=== PATIENT | male | born 1940 | race African-American/Black ===

== ENCOUNTER 2016-07-23 14:45 | Observation (INO) | payer BC ==
--- NOTE | ~2016-07-23 | EGD ---
EGD REPORT [facility] [address] [place]. [address] NAME: EHSAN RITTER : 44 STATUS : ADM Joselyn PAT#: [id number] AGE: 75 ADM/REG DATE : 07/23/16 MR#: [id number] REPORT SERV DATE: 07/24/16 DICTATED BY: LOI LOPEZ DATE: 07/24/16 REPORT STATUS : Draft [facility]ANS[facility]: [facility] DATE: 07/24/16 Endoscopy Center Patient Name: Ehsan Ritter Date of : 1940 Attending MD: LOI LOPEZ MD Procedure Date No Time: 07/24/2016 Procedure: Colonoscopy Indications: Rectal bleeding Medicines: Monitored Anesthesia Care Complications: No immediate complications. Estimated blood loss: Minimal. Procedure: Pre-Anesthesia Assessment: - ASA Grade Assessment: III - A patient with severe systemic disease. After I obtained informed consent, the scope was passed under direct vision. Throughout the procedure, the patient's blood pressure, pulse, and oxygen saturations were monitored continuously. The CF [id number] was introduced through the anus and advanced to the cecum, identified by appendiceal orifice and ileocecal valve. The colonoscopy was performed without difficulty. The patient tolerated the procedure well. The quality of the bowel preparation was good. Findings: The perianal and digital rectal examinations were normal. Pertinent negatives include normal sphincter tone and no palpable rectal lesions. A sessile polyp was found in the cecum. The polyp was 4 mm in size. The polyp was removed with a cold biopsy forceps. Resection and retrieval were complete. Estimated blood loss was minimal. Multiple medium-mouthed diverticula were found in the sigmoid colon. Multiple petechiae were found in the sigmoid colon. Biopsies were taken with a cold forceps for histology. Estimated blood loss was minimal. The exam was otherwise without abnormality on direct and retroflexion views. There is no endoscopic evidence of bleeding, mass or ulcerations in the entire colon. Impression: - One 4 mm polyp in the cecum. Resected and retrieved. - Diverticulosis in the sigmoid colon. - Petechia(e) in the sigmoid colon. Biopsied. - The examination was otherwise normal on direct and retroflexion views. Recommendation: - Return patient to [facility] for [facility] care. EGD REPORT [address] [place]. [address] NAME: EHSAN RITTER : [birth year] STATUS : ADM Joselyn PAT#: [id number] AGE: 75 ADM/REG DATE : 07/23/16 MR#: [id number] REPORT SERV DATE: 07/24/16 DICTATED BY: LOI LOPEZ DATE: 07/24/16 REPORT STATUS : Draft TRANSCRIBED BY: [employer] DATE: 07/24/16 - Soft diet today. Procedure Code(s): --- Professional --- 63209, Colonoscopy, flexible, proximal to splenic flexure; with biopsy, single or multiple Diagnosis Code(s): --- Professional --- D12.0, Benign neoplasm of cecum K57.30, Diverticulosis of large intestine without perforation or abscess without bleeding K63.89, Other specified diseases of intestine K62.5, Hemorrhage of anus and rectum CPT copyright 2013 [employer]. All rights reserved. The codes documented in this report are preliminary and upon lead rider review may be revised to meet current compliance requirements. Loi Lopez MD LOI LOPEZ MD 07/24/2016 7:59 AM This report has been signed electronically. Number of Addenda: 0 Note Initiated On: 07/24/2016 7:04 AM Scope Withdrawal Time 0 hours 13 minutes 39 seconds [id number] [id number]
--- NOTE | ~2016-07-23 | CN ---
Consultation Report [facility] [address] [place]. [address] NAME: EHSAN RITTER : 44 STATUS : ADM Joselyn PAT#: [id number] AGE: 75 ADM/REG DATE : 07/23/16 MR#: [id number] REPORT SERV DATE: 07/23/16 DICTATED BY: MARIELLE ELLIS DATE: 07/23/16 REPORT STATUS : Draft TRANSCRIBED BY: MODL DATE: 07/23/16 GI CONSULTATION DATE OF CONSULTATION: 07/23/2016 A 75-year-old male patient. REASON FOR CONSULTATION: Evaluation and management of painless lower GI bleeding. HISTORY OF PRESENT ILLNESS: Mr. Ehsan Ritter is a very pleasant 75-year-old male patient, who is known to Dr. Raymundo Jim in the outpatient setting, who presented to [facility] with a chief complaint of lower GI bleeding. He states symptom onset was four days ago with bright red blood per rectum. He states that he has passed blood daily for the last four days. Today however he has had 3 to 4 bloody bowel movements. He describes no abdominal pain. He states it is painless. He has fecal urgency, secondary to the increase of passing of blood. He came in for further evaluation. He has a history of last colonoscopy with Dr. Jim in 2010 that showed sigmoid colon, descending colon diverticulosis as well as nonbleeding internal hemorrhoids. He was due to have a colonoscopy with Dr. Jim in July, however, secondary to the bleeding, he has come in. I have discussed with the patient as well as his family who is present at the bedside that we will plan on prepping him today for colonoscopy to be done tomorrow by Dr. Bravo. I did discuss risks, benefits, alternatives, and complications with him to include, but not limited to risk of bleeding, perforation, infection, reaction to medication, as well as cardiac and pulmonary side effects. He is agreeable to proceed. PAST MEDICAL HISTORY: He has a past medical history positive for diverticulosis, internal hemorrhoids, and prostate cancer. He is status post robot-assisted laparoscopic radical prostatectomy with bilateral laparoscopic pelvic lymph node dissection. He has had urethral sling. He has had history of tension pneumothorax on the right side, status post chest tube with resolution. Hypertension. SOCIAL HISTORY: He is . Lives independently. Denies alcohol, tobacco, or illicits. FAMILY HISTORY: Noncontributory from a GI standpoint. ALLERGIES: NO KNOWN ALLERGIES. HOME MEDICATIONS: ProAir HFA; Norvasc; Artificial Tears; Lipitor; vitamin B; Cartia; Colace; Cozaar; metoprolol; Aldactone; Desyrel; and [id number] nasal spray. REVIEW OF SYSTEMS: A 10-point review of systems has been obtained with pertinent positives being addressed in the history of present illness. PHYSICAL EXAMINATION: Consultation Report [place] [id number] [facility] [place]. [address] NAME: EHSAN RITTER : 44 STATUS : ADM Joselyn PAT#: [id number] AGE: 75 ADM/REG DATE : 07/23/16 MR#: [id number] REPORT SERV DATE: 07/23/16 DICTATED BY: MARIELLE ELLIS DATE: 07/23/16 REPORT STATUS : Draft TRANSCRIBED BY: MARYCARMEN DATE: 07/23/16 VITAL SIGNS: Temperature is 98.7, pulse 80, respirations 19, and blood pressure 215/102. NEUROLOGIC: Reveals an alert male, resting in bed with no focal deficits. GENERAL: Cooperative, in no apparent distress. Awake, alert, and oriented x3. HEAD, EARS, EYES, NOSE, AND THROAT: Anicteric. Pupils equal, round, and reactive to light and accommodation. Normocephalic and atraumatic. NECK: No JVD. No palpable nodes. Supple. LUNGS: Clear anteriorly with normal respiratory effort exhibited. Equal expansion. CARDIOVASCULAR SYSTEM: Regular rate and rhythm. Mild murmur heard. ABDOMEN: Soft, nontender, obese with active bowel sounds in all four quadrants. No rebound, guarding, or organomegaly appreciated on exam. EXTREMITIES: 1+ pitting edema. PERTINENT LABORATORY DATA: Sodium 140, potassium 4.1, BUN is 14, creatinine is 1.16. White count 8.4, hemoglobin 15.3, hematocrit 43.8, and platelet count 191. ASSESSMENT AND PLAN: 1. Painless lower GI bleeding, this is likely diverticular in nature. 2. History of diverticulosis 2011 of the sigmoid and descending colon. 3. History of prostate cancer, status post prostatectomy. PLAN: 1. Clear diet. 2. N.p.o. after midnight. 3. GoLYTELY bowel prep. 4. Colonoscopy on the . 5. Q.6 hours H and H. transfuse if needed. We will follow. Other recommendations to follow endoscopy. DEBBIE/MARYCARMEN [facility] BAKARI Mullins / [phone]
--- NOTE | ~2016-07-23 | HP ---
History And Physical [place] [id number] [facility] [place]. [address] NAME: LEWIS VARELA : 44 STATUS : ADM Joselyn PAT#: [id number] AGE: 75 ADM/REG DATE : 07/23/16 MR#: [id number] REPORT SERV DATE: 07/23/16 DICTATED BY: JANAK CURRY DATE: 07/23/16 REPORT STATUS : Draft TRANSCRIBED BY: MARYCARMEN DATE: 07/23/16 DATE OF ADMISSION: 07/23/2016 Mr. Varela is a 75-year-old male patient who came in this morning to the ER because he noticed bright red blood per rectum. The patient states that for the last 3 or 4 days, he has been having some quantity of bright red blood in his stool. He notices it after he has a bowel movement which is soft and then notices blood around it but this morning for the last two or three times, he noticed a lot of blood especially this morning though there was bright red blood that filled the entire toilet bowl and this scared him and he decided to come in. He states that this has never happened to him before and he has never had bleeding per rectum. Other than this complaint, there are no other complaints. The patient states that there is some abdominal cramping before he has a bowel movement and he has had increased frequency too. He has had at least 3 bowel movements in the last 24 hours and every time, his lower abdomen cramps. Other than this, no other complaints. REVIEW OF SYSTEMS: Negative for headaches, blurry vision, trouble swallowing, chest pain, shortness of breath, fever, nausea, and vomiting. Negative for any significant abdominal pain. Negative for any swelling in feet. Negative for any hematemesis. All other review of systems were reviewed and negative. PAST MEDICAL HISTORY: 1. Significant for diverticulosis upon colonoscopy about five years ago. 2. Hypertension. 3. Coronary artery disease, status post cardiac stent. 4. Prostate cancer status post prostatectomy. 5. Chronic urinary incontinence despite sling surgery. 6. Recent tension pneumothorax that happened spontaneously and idiopathically within the last few months. This has resolved after chest tube placement and is stable currently. 7. Specifically the patient is not on any blood thinners. FAMILY HISTORY: Noncontributory except for heart disease in dad. SOCIAL HISTORY: The patient does not smoke or drink or do any illicit drugs. He is and his is currently in the room. His medications at home and allergies include the following: The patient has no known drug allergies and his home medications are Norvasc 5 mg once a day; Lipitor 10 mg p.o. once a day; Cozaar 50 mg p.o. b.i.d.; metoprolol succinate or Toprol-XL 25 mg once a day; Aldactone 50 mg once a day; Desyrel or trazodone 100 mg at bedtime; diltiazem ER 240 mg p.o. at bedtime; OTC nasal spray, Colace 200 mg p.o. daily as needed for constipation; and ProAir HFA two puffs inhalation p.r.n. for shortness of breath. PHYSICAL EXAMINATION: GENERAL: On examination, the patient is alert, oriented, able to give his history himself. Skin and mucous membranes appear well hydrated. History And Physical [address] [address] NAME: LEWIS VARELA : 42 STATUS : ADM Joselyn PAT#: [id number] AGE: 75 ADM/REG DATE : 07/23/16 MR#: [id number] REPORT SERV DATE: 07/23/16 DICTATED BY: JANAK CURRY DATE: 07/23/16 REPORT STATUS : Draft TRANSCRIBED BY: MARYCARMEN DATE: 07/23/16 VITAL SIGNS: Vital signs are very stable and currently his blood pressure is 186/99, pulse is 75 per minute, the patient is afebrile, and O2 saturation 98% on 2 L. HEENT: Unremarkable. There is no facial droop or facial asymmetry. NECK: There is no JVD, thyromegaly, or lymphadenopathy. CARDIOVASCULAR SYSTEM: S1, S2 appreciated. Sinus rhythm. No murmurs, rubs, or gallops noted. RESPIRATORY SYSTEM: Clear lungs. Good air entry. No rales or rhonchi noted. The patient still complains of some discomfort on the right side of the chest where the chest tube was put in a few months ago but other than a small well-healed scar, I see no other abnormality there. ABDOMEN: Obese, soft, nontender, nondistended. No organomegaly noted. No guarding or rigidity noted. Bowel sounds are appreciated. EXTREMITIES: There is no pedal edema. Pedal pulses are well felt.NEUROLOGICAL: No focal deficits. PSYCHIATRIC: Normal. MUSCULOSKELETAL: No acute abnormalities. RECTAL: Exam was performed by the ER nurse practitioner, who states that stool guaiac was positive. There is no visible bright red blood but she states that there is definitely guaiac-positive stool in the rectal vault. LABORATORY DATA: Labs that I have on this patient include the following: CBC shows a WBC count of 8.4, hemoglobin 15.3, hematocrit 43.8, and platelet count of 191. INR is 1. Comprehensive metabolic profile shows completely normal electrolytes, LFTs, and kidney function tests. ASSESSMENT: Assessment in this gentleman is 1. Lower GI bleed, could be secondary to diverticulosis/hemorrhoids-for this, we will go ahead and consult his GI. GI has already seen the patient and decided that he will get a colonoscopy tomorrow morning. Hence, he will be n.p.o. after midnight. We will also start him on IV fluids, IV normal saline at 100 mL an hour for the next 24 hours. We will type, cross, and hold 2 units of PRBCs even though we are not going to transfuse him as his H and H are stable and he is hemodynamically stable, and there is no active bleeding going on now. 2. We will check his H and H every eight hours. 3. Other chronic problems that are stable in him include hypertension, coronary artery disease, status post coronary stenting a few years ago, prostate cancer status post prostatectomy, chronic urinary incontinence, and a recent history of spontaneous tension pneumothorax in the right lung which are all stable at this time. We will admit the patient for observation and follow the patient as above. RRA/MODL Janak Curry M.D. History And Physical [address] [place]. [address] NAME: LEWIS VARELA : 44 STATUS : ADM Joselyn PAT#: [id number] AGE: 75 ADM/REG DATE : 07/23/16 MR#: [id number] REPORT SERV DATE: 07/23/16 DICTATED BY: JANAK CURRY DATE: 07/23/16 REPORT STATUS : Draft TRANSCRIBED BY: MARYCARMEN DATE: 07/23/16 / [id number] CC: Janak Curry M.D.
--- NOTE | ~2016-07-23 | DS ---
Discharge Summary [facility] [address] [place]. [address] NAME: LEWIS RITTER : 44 STATUS : DIS Joselyn PAT#: [id number] AGE: 75 ADM/REG DATE : 07/23/16 MR#: [id number] REPORT SERV DATE: 07/25/16 DICTATED BY: JANAK CURRY DATE: 07/24/16 REPORT STATUS : Draft TRANSCRIBED BY: MODSanaz DATE: 07/24/16 ADMISSION DATE: 07/23/2016 DISCHARGE DATE: 07/24/2016 Discharged from Observation. CONDITION ON DISCHARGE: Stable. ADVICE ON DISCHARGE: To follow up with GI specialist as scheduled by GI. DIAGNOSES ON DISCHARGE: 1. Lower gastrointestinal bleed/rectal bleed most likely secondary to diverticulosis/petechial inflammation of the sigmoid colon which was found on colonoscopy this time, but no active bleeding was found. His hemoglobin and hematocrit are stable essentially. 2. All his other diagnoses that are chronic and stable at this time also include coronary artery disease, which is stable hypertension - stable, history of prostate cancer status prostatectomy - stable, chronic urinary incontinence despite surgery - stable, recent tension pneumothorax that has completely resolved and is stable right now. BRIEF HOSPITAL COURSE: The patient is a very pleasant 75-year-old male, who was admitted with the symptoms of rectal bleed. He was admitted for observation as he was hemodynamically stable, and his hemoglobin and hematocrit were normal. GI was promptly consulted, and they did do a colonoscopy today, 07/24/2016, and this showed diverticular disease in the colon, and also petechiae in the sigmoid colon which has been biopsied, but no active bleeding was found. No hemorrhoids were found either. The patient otherwise is stable for discharge, and would like to go home, and hence we are sending him home, and I do have the following most recent lab results on this patient. His CBC shows WBC 7.4, hemoglobin 15.1, hematocrit 43.9, essentially normal. INR is 1.1. Platelets are normal. Electrolyte profile is normal. BUN and creatinine are normal. Hence, he will be going home on the following new medications; for his diverticular disease, we will go ahead and put him on MiraLAX one packet once a day so that he uses this on a regular basis, so he is not constipated. Other than that, it is important that we resume his other home medications which include the following: Amlodipine 5 mg once a day, Lipitor 10 mg once a day, Cozaar 50 mg p.o. b.i.d., Toprol-XL 25 mg once a day, Aldactone 50 mg once a day, trazodone 100 mg p.o. at bedtime, diltiazem ER 240 mg p.o. at bedtime, B group of vitamins once a day, Colace 200 mg p.o. daily as needed for constipation along with MiraLAX, ProAir HFA 2 puff inhalation p.r.n. only for trouble breathing, and Artificial Tears. Hence, the patient is being discharged home in stable condition, and I have spent about 35 minutes in coordinating discharge care of this patient including [id number] encounter and summarizing this discharge. The patient was only admitted for observation and discharge will be billed as observation only. DICTATED BY: Janak Curry M.D. Discharge Summary [address] [address] NAME: LEWIS RITTER : 44 STATUS : DIS Joselyn PAT#: [id number] AGE: 75 ADM/REG DATE : 07/23/16 MR#: [id number] REPORT SERV DATE: 07/25/16 DICTATED BY: JANAK CURRY DATE: 07/24/16 REPORT STATUS : Draft TRANSCRIBED BY: MARYCARMEN DATE: 07/24/16 RICKIE/MARYCARMEN Janak Curry M.D. / [id number] CC: Janak Curry M.D.
[2016-07-23 13:10] LABS: BASOPHILS 0.1 %; BASOPHILS ABSOLUTE 0.01 10/3/uL (0.0-0.16); EOSINOPHILS 0.7 %; EOSINOPHILS ABSOLUTE 0.06 10/3/uL (0.0-0.53); HEMATOCRIT 43.8 % (40.0-51.0); HEMOGLOBIN 15.3 g/dL (13.6-17.8); IMMATURE GRANULOCYTES 0.1 %; IMMATURE GRANULOCYTES ABSOLUTE 0.01 10/3/uL (0.0-0.11); LYMPHOCYTES 17.7 %; LYMPHOCYTES ABSOLUTE 1.49 10/3/uL (0.67-4.30); MEAN CORPUS HGB CONC 34.9 g/dL (32.0-36.0); MEAN CORPUSCULAR HEMOGLOB 32.6 pg (26.0-34.0); MEAN CORPUSCULAR VOLUME 93.4 fL (80-100); MEAN PLATELET VOLUME 9.4 fL (9.2-13.0); MONOCYTES 7.8 %; MONOCYTES ABSOLUTE 0.66 10/3/uL (0.21-1.20); NEUTROPHILS 73.6 %; NEUTROPHILS ABSOLUTE 6.21 10/3/uL (2.02-8.40); PLATELET COUNT 191 10/3/uL (150-400); RBC DISTRIBUTION WIDTH 13.8 % (12.0-16.0); RED CELL COUNT 4.69 10/6/uL (4.7-6.1); WHITE BLOOD CELLS 8.4 10/3/uL (4.5-10.5)
[2016-07-23 13:11] LABS: MANUAL DIFF NO %
[2016-07-23 13:17] LABS: PARTIAL THROMBO TIME 38.3 SEC (22.5-37.2); PROTIME (NOT ORD) 13.5 SEC (12.0-14.5)
[2016-07-23 13:26] LABS: A/G RATIO 0.9 (0.7-1.9); ALBUMIN 3.7 G/DL (3.5-5.0); ALKALINE PHOSPHATASE 88 U/L (45-117); BUN (BLOOD UREA NITROGEN) 14 MG/DL (6-23); CALCIUM, SERUM 8.9 MG/DL (8.5-10.4); CHLORIDE, SERUM 105 MMOL/L (96-112); CO2 (CARBON DIOXIDE) 29 MMOL/L (24-34); CREATININE 1.16 MG/DL (0.70-1.30); GFR AFRICAN AMERICAN 72 ML/MIN (>=60); GFR NON AFRICAN AMERICAN 62 ML/MIN (>=60); GLUCOSE, SERUM 94 MG/DL (60-99); POTASSIUM, SERUM 4.1 MMOL/L (3.5-5.3); SGOT(AST) 21 U/L (5-40); SGPT(ALT) 27 U/L (5-65); SODIUM, SERUM 140 MMOL/L (135-148); TOTAL BILIRUBIN 0.6 MG/DL (0-1.2); TOTAL PROTEIN 7.7 G/DL (6.0-8.5)
[~2016-07-23 14:45] MED LIST: AMIT25 PO; APRES25 PO; ASA5GR PO; BACDS PO; C5 PO; CARTIA XT240 MG/24 PO; CELEBREX2 PO; COZ50 PO; DSS PO; ECHINACEA125 MG PO; EXFORGE1 TA1 PO; EXFORGE1 TA3 PO; FLOMAX4 PO; GLUCCHONDR PO; HALF81 PO; HYZAAR 50/12.51 TAB PO; KLOR-CON 1010 MEQ PO; L20 PO; LIPITOR10 PO; LOP25 PO; LOP50 PO; LORT7 PO; LUNESTA3 MG PO; NEXIUM20 M1 PO; NORV5 PO; OTC NASAL SPRAY NAS; PCET PO; PLAVIX PO; PRAV10 PO; PRAVACHOL40 MG PO; PRAVASTATIN SOD40 MG PO; PROAIR HFA INH; PROAM25 PO; SPIRO50 PO; TEARS PLUS OPH; TOPXL25 PO; TRAZ100 PO; UNABLE TO RECALL; VITAMIN B PO; XYZAL5 MG PO; [UNRECOGNIZED DRUG - OTHER] PO
[2016-07-23 21:20] LABS: HEMATOCRIT 43.7 % (40.0-51.0); HEMOGLOBIN 15.4 g/dL (13.6-17.8)
[2016-07-24 05:02] LABS: BASOPHILS 0.1 %; BASOPHILS ABSOLUTE 0.01 10/3/uL (0.0-0.16); EOSINOPHILS 1.1 %; EOSINOPHILS ABSOLUTE 0.08 10/3/uL (0.0-0.53); HEMATOCRIT 43.9 % (40.0-51.0); HEMOGLOBIN 15.1 g/dL (13.6-17.8); IMMATURE GRANULOCYTES 0.1 %; IMMATURE GRANULOCYTES ABSOLUTE 0.01 10/3/uL (0.0-0.11); LYMPHOCYTES 17.3 %; LYMPHOCYTES ABSOLUTE 1.28 10/3/uL (0.67-4.30); MEAN CORPUS HGB CONC 34.4 g/dL (32.0-36.0); MEAN CORPUSCULAR HEMOGLOB 32.3 pg (26.0-34.0); MEAN PLATELET VOLUME 9.4 fL (9.2-13.0); MONOCYTES 10.6 %; MONOCYTES ABSOLUTE 0.78 10/3/uL (0.21-1.20); NEUTROPHILS 70.8 %; NEUTROPHILS ABSOLUTE 5.23 10/3/uL (2.02-8.40); PLATELET COUNT 185 10/3/uL (150-400); RBC DISTRIBUTION WIDTH 13.8 % (12.0-16.0); RED CELL COUNT 4.67 10/6/uL (4.7-6.1); WHITE BLOOD CELLS 7.4 10/3/uL (4.5-10.5)
[2016-07-24 05:05] LABS: MANUAL DIFF NO %
[2016-07-24 05:09] LABS: INTERNATIONAL NORMAL RATI 1.1 UNITS (-)
[2016-07-24 05:15] LABS: BUN (BLOOD UREA NITROGEN) 12 MG/DL (6-23); CALCIUM, SERUM 8.6 MG/DL (8.5-10.4); CHLORIDE, SERUM 107 MMOL/L (96-112); CO2 (CARBON DIOXIDE) 25 MMOL/L (24-34); CREATININE 0.98 MG/DL (0.70-1.30); GFR AFRICAN AMERICAN 88 ML/MIN (>=60); GFR NON AFRICAN AMERICAN 76 ML/MIN (>=60); GLUCOSE, SERUM 99 MG/DL (60-99); POTASSIUM, SERUM 3.6 MMOL/L (3.5-5.3); SODIUM, SERUM 138 MMOL/L (135-148)
[2016-07-24] MEDS ORDERED: MIRALAX POWDER1 PKT PO (14:08)
== END 2016-07-24 14:31 | disposition home or self-care (01) ==
LOC: ER 14:45 → CDU1 16:34
PROVIDERS: Emergency Medicine; Internal Medicine Gastroenterology; Nurse Practitioner Family
PROC: 0DBN8ZX Excision of Sigmoid Colon, Via Natural or Artificial Opening Endoscopic, Diagnostic (ICD-10-PCS; 2016-07-24)
PROC: 0DBH8ZX Excision of Cecum, Via Natural or Artificial Opening Endoscopic, Diagnostic (ICD-10-PCS; principal; 2016-07-24 07:34)
DX: K63.5 Polyp of colon (principal); K57.30 Diverticulosis of large intestine without perforation or abscess without bleeding; K52.9 Noninfective gastroenteritis and colitis, unspecified; I10 Essential (primary) hypertension; I25.10 Atherosclerotic heart disease of native coronary artery without angina pectoris; Z79.899 Other long term (current) drug therapy
CPT/HCPCS: 36415; 80048; 80053; 85014; 85018; 85025; 85610; 85730; 86850; 86900; 86901; 88305; 96374; 99285; A9270-GY; G0378; J0360